=== PATIENT | male | born 1975 | race African-American/Black ===

== ENCOUNTER 2016-08-15 09:43 | Emergency (ER) | payer OTHER ==
[2016-08-15 10:00] VITALS: BP 152/107
[2016-08-15] MEDS ORDERED: NS 1,000 ML IV ONE (10:11)
--- NOTE | 2016-08-15 10:17 | PROVIDER DOCUMENTATION ---
HPI-Abdominal Pain/GI Problem - General Source: patient - History of Present Illness-ABD Nature of Presenting Problems: Pt is 41 y/o M presents to the ED with abdominal pain. Pt states symptoms have been present for 2 days. Pt states N yesterday but denies N today. Pt states having D. Pt states he thinks he ate some bad taco peñaloza. Pt denies sick contact at home. Abdominal Pain Onset Location: reports: generalized abdomen Pain Radiation: reports: no radiation Quality of Pain: reports: cramping Severity in ED: reports: mild Onset/Duration: reports: 2 days ago Timing: reports: still present, intermittent Activities at Onset: reports: light activity Exposure to sick contacts?: No Modifying Factors: improves with: nothing Associated Symptoms: reports: diarrhea, nausea. denies: anxiety, arm pain, back /neck pain, chest pain, constipation, cough, diaphoresis, dizziness, EENT symptoms, fatigue, fever/chills, genitourinary problems, headaches, heartburn, joint pain, loss of appetite, malaise, muscle aches, sinus congestion/drainage, rash, seizure, shortness of breath, sensory/motor loss, pain with inspiration, swelling/mass in abdomen, syncope, vomiting, weakness, trouble walking Last BM: this morning Dark Stools Present?: reports: none noticed Rectal Bleeding: reports: none # of Diarrhea Episodes: 4 Rectal Pain: reports: none Emesis Description: reports: none Bruising or Bleeding Gums?: No Similar Symptoms Previously?: Yes Recently seen or treated by another doctor?: No <Yeny Erwin - Last Filed: 08/15/16 11:19> <Jose Martin I - Last Filed: 08/15/16 11:23> - General Chief Complaint: Diarrhea Stated Complaint: ABD PAIN Time Seen by Provider: 08/15/16 10:06 Allergies/Adverse Reactions: Patient Allergies Allergy/AdvReac Type Severity Reaction Status Date / Time No Known Allergies Allergy Verified 08/15/16 10:00 Home Medications: Home Medication List Medication Instructions Recorded Confirmed Last Taken Type No Home Medications 08/15/16 08/15/16 Unknown History Review of Systems - Adult - REVIEW OF SYSTEMS - ADULT Constitutional: reports: no symptoms reported Eyes: reports: no symptoms reported Ears, Nose, Mouth & Throat: reports: no symptoms reported Cardiovascular: reports: irregular heart rate (tachy). denies: chest pain, heart murmur Respiratory: reports: no symptoms reported Gastrointestinal: reports: abdominal pain, diarrhea, nausea. denies: vomiting Genitourinary: reports: no symptoms reported Musculoskeletal: reports: no symptoms reported Integumentary: reports: no symptoms reported Neurological: reports: no symptoms reported Psychiatric: reports: no symptoms reported Endocrine: reports: no symptoms reported Hematologic/Lymphatic: reports: no symptoms reported Allergic/Immunologic: reports: no symptoms reported All Other Systems: Reviewed and Negative <Yeny Erwin - Last Filed: 08/15/16 11:19> Past History - Adult - PAST MEDICAL HISTORY-ADULT Review of Records: reports: Nursing Assessment Review, Medications Reviewed, Social history reviewed & non-contributory. Major Childhood Illnesses: reports: denies history Cardiovascular: reports: denies history Respiratory: reports: denies history Gastrointestinal: reports: denies history Obstetrical/Gynecological: reports: denies history Genitourinary: reports: denies history Musculoskeletal: reports: denies history Neurological: reports: denies history Endocrine/Immune: reports: denies history Other Conditions: reports: denies history - PRIOR SURGERIES/PROCEDURES Surgical/Procedure History: reports: orthopedic (extremity) - PRIOR HOSPITALIZATIONS Prior Hospitalizations: reports: none - IMMUNIZATION STATUS Childhood Immunizations: See Nurse Assessment Flu Vaccine: See Nurse Assessment - FAMILY HISTORY Family History: reviewed, not pertinent - SOCIAL HISTORY Smoking: cigarettes, less than 1 pack/day Provider spent 3-5 mins advising pt. on dangers of tobacco.: Discussed manners to quit use, and f/u contacts for add'l counseling. Substance Use: denies Living Situation: family <Yeny Erwin - Last Filed: 08/15/16 11:19> Physical Exam-General - PHYSICAL EXAM-ADULT Initial Vital Signs Reviewed: Yes - CONSTITUTIONAL General Appearance: appears well, alert, no apparent distress - EYES Eyes: PERRL/EOMI, pink conjunctivae, fundi clear, no AV nicking - HEAD, EARS, NOSE, MOUTH & THROAT HENMT: normocephalic/atraumatic, normal ENT inspection, TMs normal, pharynx normal. negative: moist mucous membranes (dry mucous membranes) - NECK Neck: non-tender, full range of motion, supple, normal inspection - RESPIRATORY Respiratory: chest non-tender, lungs clear, normal breath sounds, no pleuratic chest pain, no respiratory distress, no accessory muscle use - CARDIOVASCULAR Cardiovascular: normal peripheral pulses, no edema, no gallop, no JVD, no murmur , tachycardia - GASTROINTESTINAL (ABDOMEN) Abdominal Exam: normal bowel sounds, non tender, soft, no organomegaly, no pulsatile mass - LYMPHATIC Lymphatic: no adenopathy - MUSCULOSKELETAL Back Exam: normal inspection, no CVA tenderness, no vertebral tenderness Extremity: normal range of motion, non-tender, normal gait, normal inspection, no pedal edema, no calf tenderness, normal capillary refill - SKIN Integumentary: normal color, normal turgor, warm/dry - NEUROLOGIC Neurologic: grossly normal - PSYCHIATRIC Psych/Mental Status: normal mood/affect, oriented x 3 <Yeny Erwin - Last Filed: 08/15/16 11:19> Progress - PLAN OF CARE/RESULTS Progress/Plan/Lab Results: Orders Category Date Time Status Saline Loc DIRECTED Care 08/15/16 10:07 Active NPO Diet 08/15/16 10:07 Active AMYLASE [CHEM] Stat Lab 08/15/16 10:10 Ordered CBC WITH ELECTRONIC DIFF [HEME] Stat Lab 08/15/16 10:10 Ordered COMPREHENSIVE METABOLIC PANEL [CHEM] Stat Lab 08/15/16 10:10 Ordered LIPASE [CHEM] Stat Lab 08/15/16 10:10 Ordered URINALYSIS W/POSS RFLX CULT [URINALYSIS] Stat Lab 08/15/16 10:07 Uncollected 0.9% Sodium Chloride Inj [Ns] 1,000 ml Med 08/15/16 10:11 Active IV 999 mls/hr Vital Signs - 24 hr 08/15/16 09:57 Temperature 98.4 F Pulse Rate 108 H Respiratory 18 Rate Blood Pressure 152/107 O2 Sat by Pulse 98 Oximetry Laboratory Tests 08/15/16 08/15/16 08/15/16 10:18 10:18 10:49 WBC 9.40 RBC 5.46 Hgb 15.8 Hct 47.3 MCV 86.6 MCH 28.9 MCHC 33.4 RDW Std Deviation 13.6 Plt Count 307 MPV 9.6 Immature Gran % (Auto) 0.2 Lymph % (Auto) 29.9 Potter % (Auto) 8.3 Eos % (Auto) 1.2 Baso % (Auto) 0.4 Immature Gran # (Auto) 0.02 Lymph # (Auto) 2.81 Potter # (Auto) 0.78 H Eos # (Auto) 0.11 Baso # (Auto) 0.04 Sodium 140 Potassium 3.5 Chloride 101 Carbon Dioxide 24 L Anion Gap 16 BUN 9 Creatinine 1.0 Estimated GFR/1.73 m2 > 60 BUN/Creatinine Ratio 9 Glucose 82 Calculated Osmolality 277 Calcium 9.4 Total Bilirubin 0.50 AST 27 ALT 18 Alkaline Phosphatase 78 Total Protein 8.0 Albumin 4.8 Globulin 3.0 Albumin/Globulin Ratio 2.0 Amylase 140 Lipase 31 Urine Source Cancelled Urine Color Cancelled Urine Turbidity Cancelled Urine pH Cancelled Ur Specific [place] Cancelled Urine Protein Cancelled Ur Glucose (Stick) Cancelled Ur Ketones (Stick) Cancelled Urine Blood Cancelled Urine Nitrite Cancelled Urine Bilirubin Cancelled Urobilinogen Dipstick Cancelled Urine Leukocytes Cancelled Urine WBC (Auto) Cancelled Urine RBC (Auto) Cancelled U Epithel Cells (Auto) Cancelled Urine Bacteria (Auto) Cancelled 08/15/16 10:49 WBC RBC Hgb Hct MCV MCH MCHC RDW Std Deviation Plt Count MPV Immature Gran % (Auto) Lymph % (Auto) Potter % (Auto) Eos % (Auto) Baso % (Auto) Immature Gran # (Auto) Lymph # (Auto) Potter # (Auto) Eos # (Auto) Baso # (Auto) Sodium Potassium Chloride Carbon Dioxide Anion Gap BUN Creatinine Estimated GFR/1.73 m2 BUN/Creatinine Ratio Glucose Calculated Osmolality Calcium Total Bilirubin AST ALT Alkaline Phosphatase Total Protein Albumin Globulin Albumin/Globulin Ratio Amylase Lipase Urine Source CLEAN CATCH Urine Color Urine Turbidity Urine pH Ur Specific [place] Urine Protein Ur Glucose (Stick) Ur Ketones (Stick) Urine Blood Urine Nitrite Urine Bilirubin Urobilinogen Dipstick Urine Leukocytes Urine WBC (Auto) Urine RBC (Auto) U Epithel Cells (Auto) Urine Bacteria (Auto) <Yeny Erwin - Last Filed: 08/15/16 11:19> Departure <Yeny Erwin - Last Filed: 08/15/16 11:19> - Departure Time of Disposition Order: 11:22 Certified Medical Emergency: Emergent <Jose Martin I - Last Filed: 08/15/16 11:23> - Departure DIAGNOSIS: Gastroenteritis Disposition: HOME 01 Condition: Stable Referrals: None,PCP [Primary Care Provider] - Attestation - Scribe Verification/Attestation Scribe:: Yeny Erwin Acting as Scribe for:: Jose Martin Scribe documention review:: This chart was documented by a scribe and accurately reflects the service the provider performed and the decisions made by the provider. <Yeny Erwin - Last Filed: 08/15/16 11:19> - Scribe Verification/Attestation Scribe:: Jose Martin I Scribe documention review:: This chart was documented by a scribe and accurately reflects the service the provider performed and the decisions made by the provider. - Physician/ EVIN Attestation Patient care was provided by Advanced Practice Provider:: Yes Advanced Practice Provider documentation review:: The Mid-level provider documentation, treatment plan and medical decision making was reviewed by the physician who agrees with all treatment and medical decision making by the MLP. The physician spent face to face time with patient:: Yes Advanced Practice Provider documentation review:: The physician spent face to face time with this patient and agrees with all MLP documentation, treatment, and medical decision making by the MLP. See provider notes for further information. <Jose Martin I - Last Filed: 08/15/16 11:23> Physician Attestation - Physician Attestation I, the provider, attest to the following statement:: Jose Martin Physician documentation Attestation:: This documentation recorded by the scribe accurately reflects the service I personally performed and the decisions made by me. <Jose Martin I - Last Filed: 08/15/16 11:23>
[2016-08-15 10:27] LABS: MANUAL DIFF NEEDED? NO
[2016-08-15 10:29] LABS: BASO% 0.4 % (0.0-0.8); EOS# 0.11 X1000 (0.0-0.7); EOS% 1.2 % (0.0-10.0); HEMATOCRIT 47.3 % (42.0-52.0); HEMOGLOBIN 15.8 g/dL (14.0-18.0); LYMPH# 2.81 X1000 (1.2-3.4); LYMPH% 29.9 % (20.5-51.1); MCH 28.9 PG (27-31); MCHC 33.4 g/dL (33-37); MCV 86.6 FL (81-99); MONO# 0.78 X1000 (0.11-0.59); MONO% 8.3 % (1.7-9.3); MPV 9.6 FL (7.4-10.4); PLT 307 X1000 (130-400); RBC 5.46 XMIL (4.7-6.1)
[2016-08-15 10:55] LABS: AGAP 16; ALBUMIN 4.8 g/dL (3.5-5.0); ALKALINE PHOSPHATASE 78 U/L (32-122); AMYLASE 140 U/L (20-200); BUN 9 mg/dL (8-22); CALCIUM 9.4 mg/dL (8.8-10.2); CHLORIDE 101 mmol/L (98-107); COSMO 277; GOT 27 U/L (10-34); GPT 18 U/L (10-44); LIPASE 31 U/L (13-60); POTASSIUM 3.5 mmol/L (3.5-5.1); SODIUM 140 mmol/L (136-145); TCO2 24 mmol/L (25-35)
[2016-08-15 11:13] LABS: URINE CULTURE PL NEEDED? NO; URINE SOURCE CLEAN CATCH
[2016-08-15 11:23] LABS: IMM GRAN# 0.04 X1000 (0.0-0.04); IMM GRAN% 0.4 % (0.0-0.5)
[2016-08-15 11:27] LABS: NEUT% 59.8 % (42.2-75.2)
[2016-08-15 11:48] LABS: URINE EPITHELIAL CELLS <10 /HPF (<10)
[2016-08-15 11:50] LABS: BILIRUBIN URINE NEGATIVE (NEGATIVE); BLOOD URINE NEGATIVE (NEGATIVE); CLARITY CLEAR (CLEAR); COLOR YELLOW; GLUCOSE URINE NEGATIVE (NEGATIVE); PH URINE 6.5; PROTEIN URINE TRACE mg/dL (NEGATIVE); SP GRAVITY URINE 1.015
[2016-08-15 11:51] LABS: LEUKOCYTES URINE NEGATIVE (NEGATIVE); NITRITE URINE NEGATIVE (NEGATIVE); UROBILINOGEN URINE NORMAL
== END 2016-08-15 11:36 | disposition home or self-care (01) ==
LOC: P.ED 09:43
DX: K52.9 Noninfective gastroenteritis and colitis, unspecified (principal); R10.84 Generalized abdominal pain; R11.0 Nausea; R19.7 Diarrhea, unspecified; R00.0 Tachycardia, unspecified; F17.210 Nicotine dependence, cigarettes, uncomplicated; Z71.6 Tobacco abuse counseling
CPT/HCPCS: 80053; 81001; 82150; 83690; 85025; J7030